=== PATIENT | female | born 1970 | race Hispanic/Latino ===

== ENCOUNTER → 2022-05-24 | Outpatient (CLI) | payer SELFPAY ==
[~2022-05-24] MED LIST: IOHEXOL 350 MG/ML 100ML INFUS..BTL IV ONE; METOPROLOL TARTRATE 1 MG/ML 5ML VIAL IV ONE
== END | disposition home or self-care (01) ==
LOC: RAH 08:40
PROVIDERS: ATTEND Internal Medicine
DX: R07.9 Chest pain, unspecified (principal); I49.3 Ventricular premature depolarization; M47.815 Spondylosis without myelopathy or radiculopathy, thoracolumbar region
CPT/HCPCS: 75574; J3490; Q9967

== ENCOUNTER 2024-09-11 10:26 | Emergency (ER) | payer OTHER ==
[~2024-09-11] VITALS: Ht 157.5 cm; Wt 86.2 kg
--- NOTE | 2024-09-11 10:35 | ERN ---
ED Note History of Present Illness Stated Complaint: VAGINAL BLEEDING Chief Complaint: Vaginal Problems/Bleeding Time Seen by MD: 10:29 Dictation: PATIENT IS A 53-YEAR-OLD FEMALE COMING IN TODAY WITH COMPLAINTS OF HEAVY VAGINAL BLEEDING FOR THE LAST 10 DAYS. SHE STATES HER LAST MENSES WAS FEBRUARY 2024 AND SHE IS MENOPAUSAL. SHE STATES HER CELL COVERER DOCTORS , AT [facility]. SHE SAID SHE THOUGHT SHE WAS NOT BE HAVING ANYMORE. AFTER HER MENOPAUSE HOWEVER SHE HAD BEEN BLEEDING HEAVILY. SHE STATES SHE HAS A HISTORY OF CYST. PAIN AT THIS TIME Allergies: Coded Allergies: No Known Drug Allergies (Unverified Allergy, Unknown, 09/11/24) Past Medical History Past Medical History: Hypertension Surgical History: Other, BTL, Surgical History Other: plastic sx History: Not Applicable RN Note Reviewed/Agreed w/PFSH: Yes Review of System Dictation CONSTITUTIONAL: NEGATIVE EXCEPT FOR HPI HEAD/FACE: NEGATIVE EXCEPT FOR HPI EENT: NEGATIVE EXCEPT FOR HPI RESPIRATORY: NEGATIVE EXCEPT FOR HPI GASTROINTESTINAL/ABDOMINAL: NEGATIVE EXCEPT FOR HPI GENITOURINARY: NEGATIVE EXCEPT FOR HPI VAGINAL BLEEDING MUSCULOSKELETAL: NEGATIVE EXCEPT FOR HPI INTEGUMENTARY: NEGATIVE EXCEPT FOR HPI NEUROLOGICAL/PSYCH: NEGATIVE EXCEPT FOR HPI HEMATOLOGIC/LYMPHATIC: NEGATIVE EXCEPT FOR HPI ALL SYSTEMS NEGATIVE, EXCEPT NOTED ABOVE. 13 POINT REVIEW OF SYSTEMS ASSESSED AND ALL NEGATIVE EXCEPT FOR ABOVE. Initial Vital Sign VS Vital Signs Date Time Temp Pulse Resp B/P (MAP) Pulse Ox O2 Delivery O2 Flow Rate FiO2 09/11/24 10:30 99.7 94 18 190/105 99 Room Air 0 09/11/24 10:34 21 Physical Exam Dictation VITAL SIGNS REVIEWED GENERAL APPEARANCE: ALERT, ORIENTED X 3, NO ACUTE DISTRESS, WELL DEVELOPED, NOURISHED. MILDLY OBESE HEAD AND FACE: NON-TRAUMATIC. EYES: PERRL, PINK CONJUNCTIVAS, EYELID NO TRAUMA, ANTERIOR CHAMBER WITH ARCUS SENILIS. EARS: PINNAS INTACT AND NO SIGNS OF TRAUMA OR ERYTHEMA EAR CANALS CLEAR AND NO DISCHARGE TM NO ERYTHEMA NOSE: NO DISCHARGE, NO BLEEDING. OROPHARYNX: MOUTH NORMAL, TONGUE PINK, PHARYNX CLEAR,NO ERYTHEMA, TONSILS NO EXUDATES, NO ABSCESSES NOTED, MUCOUS MEMBRANE MOIST NECK: SUPPLE, NON-TENDER, NO THYROMEGALY, NO MASSES, NO JVD, NO BRUITS BREAST:DEFERRED CHEST:NO TENDERNESS, NO CREPITUS, NO PARADOXICAL MOVEMENT, NO RETRACTIONS LUNGS:CLEAR, WELL-VENTILATED, SYMMETRIC, NO RALES, NO WHEEZING, NO RHONCHI, NO STRIDOR, GOOD BREATH SOUNDS BILATERALLY HEART: REGULAR RATE, REGULAR RHYTHM, NO MURMUR, NO GALLOPS VASCULAR: NO PERIPHERAL EDEMA, ABDOMEN: SOFT, POSITIVE BOWEL SOUNDS, NONDISTENDED, NO GUARDING, NONTENDER, NO REBOUND, NO MASSES NO HEPATOMEGALY, NO SPLENOMEGALY, NO STANLEY'S SIGN, NO HERNIAS. RECTAL: DEFERRED GENITAL: DEFERRED NEUROLOGICAL: NORMAL SPEECH, MOTOR FUNCTION INTACT, SENSORY FUNCTION INTACT MUSCULOSKELETAL: NECK NONTENDER, FULL RANGE OF MOTION, BACK NONTENDER, FULL RANGE OF MOTION, EXTREMITIES: NONTENDER, FULL RANGE OF MOTION SKIN: COLOR PINK, DRY, NO TURGOR, NO RASH, NO LACERATIONS, NO ABRASIONS, NO CONTUSIONS. LYMPHATIC: DEFERRED Results (Laboratory/Radiology) Laboratory/Radiology Laboratory Tests Test 09/11/24 10:44 White Blood Count 7.0 K/uL (4.8-10.8) Red Blood Count 3.83 MIL/uL (4.00-5.50) L Hemoglobin 8.4 g/dL (12.0-16.0) L Hematocrit 28.1 % (36-48) L Mean Corpuscular Volume 73.4 fL (79-99) L Mean Corpuscular Hemoglobin 21.9 pg (27.0-33.0) L Mean Corpuscular Hemoglobin Concent 29.9 g/dL (32.0-36.0) L Red Cell Distribution Width 21.5 % (11.0-15.5) H Platelet Count 337 K/uL (130-400) Mean Platelet Volume 9.4 fL (7.5-10.5) Immature Granulocyte % (Auto) 0.6 % (0-1) Neutrophils (%) (Auto) 78.4 % (40.0-77.0) H Lymphocytes (%) (Auto) 14.7 % (21.0-51.0) L Monocytes (%) (Auto) 4.6 % (3.0-13.0) Eosinophils (%) (Auto) 1.0 % (0.0-8.0) Basophils (%) (Auto) 0.7 % (0.0-5.0) Neutrophils # (Auto) 5.5 K/uL (1.8-7.7) Lymphocytes # (Auto) 1.0 K/uL (1.0-4.8) Monocytes # (Auto) 0.3 K/uL (0.1-1.0) Eosinophils # (Auto) 0.07 K/uL (0.00-0.70) Basophils # (Auto) 0.05 K/uL (0.00-0.20) Absolute Immature Granulocyte (auto 0.04 K/uL (0-1) Nucleated Red Blood Cells 0.0 % (0.0-0.19) Sodium Level 139 mmol/L (136-145) Potassium Level 4.1 mmol/L (3.5-5.1) Chloride Level 105 mmol/L (101-111) Carbon Dioxide Level 28 mmol/L (21-32) Blood Urea Nitrogen 13 mg/dL (7-18) Creatinine 0.6 mg/dL (0.5-1.0) Glomerular Filtration Rate Calc 109 mL/min (>90) Random Glucose 126 mg/dL (70-105) H Total Calcium 8.3 mg/dL (8.5-10.1) L 1110/NON OB ULTRASOUND DEMONSTRATES ECHOGENIC MASS WITH THE ENDO B ENDOMETRIUM POSSIBLE POLYP. 11 X 18 X 11 MM POSITIVE BLOOD FLOW TO BOTH OVARIES. CUL-DE-SAC NEGATIVE Labs Reviewed?: Yes ED Course ED Course Orders Procedure Category Date Status Time Cbc With Differential LAB 09/11/24 In Process 10:32 Type And Screen BBK 09/11/24 In Process 10:32 Basic Metabolic Panel LAB 09/11/24 Complete 10:32 Us Pelvic Non-Ob Comp US 09/11/24 Resulted 10:32 Vital Signs Date Time Temp Pulse Resp B/P (MAP) Pulse Ox O2 Delivery O2 Flow Rate FiO2 09/11/24 10:50 99.7 91 18 164/89 98 Room Air* 0 21 09/11/24 10:34 99.7 94 18 190/105 99 Room Air* 0 21 09/11/24 10:30 99.7 94 18 190/105 99 Room Air 0 1135/SPOKE WITH PATIENT AT LENGTH REGARDING CLINICAL FINDINGS AND ULTRASOUND REPORT. SHE WAS STRONGLY ADVISED TO FOLLOW UP WITH HER CELL COVERER DOCTOR IN THE NEX T SEVERAL DAYS FOR MANAGEMENT OF HER POSTMENOPAUSAL BLEEDING. HE IS ALSO MADE AWARE SHE HAS A AN ENDOMETRIAL POLYP 11 MM. Medical Decision Making MDM MEDICAL DECISION-MAKING BASED ON BASIC TO INCLUDE TYPE AND SCREEN AND NON OB ULTRASOUND REPORT. PATIENT HAS A NON TRANSFUSED BOIL ANEMIA 11 MM ENDOMETRIAL CYST WITH POSITIVE FLOW TO BOTH OVARIES. SHE WAS MADE AWARE TO FOLLOW UP WITH HER CELL COVERER DOCTOR IN THE NEXT 2-3 DAYS. DX & DISP Disposition: Discharge Departure Impression: Primary Impression: Postmenopausal bleeding Additional Impressions: Hyperglycemia, Hypocalcemia, Anemia Condition: Stable Scripts Calcium Carbonate (Calcium) 500 Mg Calcium (1250 Mg) Tab.chew 1 TAB PO BID for 15 Days, #30 TAB 0 Refills Prov: YAIR LE NP 09/11/24 Additional Instructions: FOLLOW-UP WITH PRIMARY CARE PROVIDER IN 1 TO 2 DAYS. TAKE MEDICATIONS DIRECTED HERE IN THE EMERGENCY ROOM. OKAY TO CONTINUE HOME MEDICATIONS UNLESS OTHERWISE DISCUSSED DURING YOUR VISIT IN THE EMERGENCY ROOM TODAY. RETURN TO YOUR NEAREST EMERGENCY ROOM IF SYMPTOMS WORSEN OR IF THERE IS NO IMPROVEMENT. CALL 911 IF YOU NEED IMMEDIATE ASSISTANCE. TAKE TYLENOL OR MOTRIN [id number] NEEDED AND IF NO CONTRAINDICATIONS ARE PRESENT. INCREASE ORAL HYDRATION. A WOUND CULTURE OR URINE CULTURE WAS ORDERED HERE IN THE EMERGENCY ROOM DEPARTMENT PLEASE FOLLOW-UP WITH PRIMARY CARE PROVIDER AND ADVISE THEM TO GET REPEAT PORTS FROM OUR FACILITY. IF YOU HAD ANY MANNY WRAP/SPLINTS THAT WERE APPLIED HERE, PLEASE DO NOT REMOVE THEM UNTIL YOU SEE YOUR PRIMARY CARE OR SPECIALTY. TAKE CALCIUM DIRECTED TWICE A DAY UNTIL GONE. FOLLOW UP WITH YOUR CELL COVERER DOCTOR IN THE NEXT SEVERAL DAYS FOR MANAGEMENT OF YOUR POSTMENOPAUSAL BLEEDING AND ENDOMETRIAL CYST. Referrals: SELF,REFERRAL (PCP) Time of Disposition: 11:38 I have reviewed the case, and I agree with, Diagnosis and Plan YAIR LE NP Sep 11, 2024 10:35
[2024-09-11 11:02] LABS: CREATININE 0.6 mg/dL (0.5-1.0); POTASSIUM 4.1 mmol/L (3.5-5.1)
[2024-09-11 11:10] LABS: BASOPHILS # (AUTO) 0.05 K/uL (0.00-0.20); BASOPHILS % (AUTO) 0.7 % (0.0-5.0); EOSINOPHILS # (AUTO) 0.07 K/uL (0.00-0.70); HEMATOCRIT 28.1 % (36-48); IMMATURE GRANULOCYTE ABSOLUTE 0.04 K/uL (0-1); LYMPHOCYTES % (AUTO) 14.7 % (21.0-51.0); MEAN CORPUSCULAR HEMOGLOBIN 21.9 pg (27.0-33.0); MEAN CORPUSCULAR HGB CONC 29.9 g/dL (32.0-36.0); MEAN CORPUSCULAR VOLUME 73.4 fL (79-99); MONOCYTES # (AUTO) 0.3 K/uL (0.1-1.0); MONOCYTES % (AUTO) 4.6 % (3.0-13.0); NEUTROPHILS # (AUTO) 5.5 K/uL (1.8-7.7); NEUTROPHILS % (AUTO) 78.4 % (40.0-77.0); PLATELET COUNT (AUTO) 337 K/uL (130-400); RED BLOOD CELL COUNT(AUTO) 3.83 MIL/uL (4.00-5.50); RED CELL DISTRIBUTION WIDTH 21.5 % (11.0-15.5)
--- NOTE | 2024-09-11 11:15 | NUR ---
PT STATES SHE HAS AN OB/GY APPOINMENT FOR FRIDAY.
--- NOTE | 2024-09-11 11:31 | HMCIMG ---
US PELVIC NON-OB COMP HISTORY: No additional history given. COMPARISON: None TECHNIQUE: Transabdominal pelvic ultrasound study was performed. FINDINGS: The uterus measures 10.6 x 5.6 x 7.1 cm. The right ovary measures 2 x 2.3 x 1.7 cm. The left ovary measures 2.5 x 1.7 x 2.5 cm. Flow is seen in both ovaries. Endometrial thickness is 13 mm. There is possible endometrial polyp measuring 11 mm. There is left ovarian follicle measuring 13 mm. No free fluid is seen in the cul-de-sac. IMPRESSION: 1. No adnexal mass is seen. There is possible endometrial polyp measuring 11 mm.
[2024-09-11] MEDS ORDERED: CALC-322 PO (11:39)
[2024-09-11 11:53] VITALS: BP 163/92; PULSE 80; RESP 16; TEMP 99.7; O2SAT 98
== END 2024-09-11 12:02 | disposition home or self-care (01) ==
LOC: EDH 10:26
DX: N95.0 Postmenopausal bleeding (principal); R73.9 Hyperglycemia, unspecified; E83.51 Hypocalcemia; D64.9 Anemia, unspecified; I10 Essential (primary) hypertension; Z98.51 Tubal ligation status; Z98.890 Other specified postprocedural states
CPT/HCPCS: 36415; 76856; 80048; 85025; 86850; 86900; 86901; 99284